=== PATIENT | female | born 2000 | race Caucasian/White ===

== ENCOUNTER 2022-08-27 23:13 | Emergency (ER) | payer OTHER ==
[2022-08-27 23:23] VITALS: BP 137/95
[2022-08-27] MEDS ORDERED: AMOX/CLAV 875 MG/125 MG TABLET PO STA (23:36)
--- NOTE | 2022-08-27 23:37 | ED Physician Documentation ---
PD HPI HEENT - Stated complaint Stated Complaint: RT EAR PX - Chief complaint Chief Complaint: Heent - History obtained from History obtained from: Patient - Additional information Additional information: Patient is a 21-year-old female presenting for evaluation of right ear pain that has been present since last . She states approximately a week ago she started having a sore throat and left ear pain with a cough productive of clear phlegm. She had a telehealth visit on Saturday and was recommended to have a strep test which was done and negative. She has been using [id number] medications with some improvement in her other symptoms. 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 Review of Systems Constitutional: denies: Fever Ears: reports: Ear pain Cardiac: denies: Chest pain / pressure Respiratory: denies: Dyspnea GI: denies: Abdominal Pain Neurologic: denies: Headache PD PAST MEDICAL HISTORY - Present Medications Home Medications: Ambulatory Orders Medication Instructions Recorded Confirmed Amox/Clav 875/125 [Augmentin] 1 each PO Q12H #14 tablet 08/27/22 Desvenlafaxine Succinate [Pristiq 100 mg PO DAILY 08/27/22 08/27/22 ER] lamoTRIgine [Lamictal Xr] 50 mg PO DAILY 08/27/22 08/27/22 - Allergies Allergies/Adverse Reactions: Allergies Allergy/AdvReac Type Severity Reaction Status Date / Time No Known Drug Allergies Allergy Verified 08/27/22 23:23 PD ED PE NORMAL - General General: Alert and oriented X 3, No acute distress, Well developed/nourished - HEENT HEENT: Atraumatic, Moist mucous membranes, Pharynx benign (No oral swelling, erythema or exudate), Other (Left TM is normal, right TM is bulging, cloudy with erythema, intact) - Neck Neck: Supple, no meningeal sign - Cardiac Cardiac: RRR - Respiratory Respiratory: No respiratory distress, Clear bilaterally - Neuro Neuro: Normal speech Results - Vitals Vitals: Vital Signs - 24 hr 08/27/22 23:18 Temperature 36.6 C Heart Rate 94 Respiratory 19 Rate Blood Pressure 137/95 H O2 Saturation 100 Oxygen O2 Source Room air PD Medical Decision Making - ED course ED course: Patient presenting for evaluation of right ear pain in the setting of other URI symptoms. Her other symptoms have improved over the course of the week but right ear pain has persisted. On exam she has signs of otitis media. Given duration and worsening feel antibiotics would be appropriate. Patient is Agreeable. She is counseled on treatment plan as well as concerning symptoms to return for. Departure - Departure Disposition: 01 Home, Self Care Clinical Impression: Right otitis media Condition: Stable Instructions: ED Otitis Media Acute Adult Prescriptions: Amox/Clav 875/125 [Augmentin] 1 each PO Q12H #14 tablet Comments: You have an ear infection in your right ear. I am starting you on an antibiotic called Augmentin. I have sent your prescription to [facility] in [place].Please make sure to complete the course of the antibiotics. If you develop any worsening symptoms please consider return to the emergency departme nt. Discharge Date/Time: 08/27/22 23:40
== END 2022-08-27 23:40 | disposition home or self-care (01) ==
LOC: ED 23:13
DX: H66.91 Otitis media, unspecified, right ear (principal)
CPT/HCPCS: 99282; 99283; A9270

== ENCOUNTER 2022-11-29 22:02 | Emergency (ER) | payer OTHER ==
[2022-11-29] MEDS ORDERED: PENICILLIN VK 250 MG TABLET PO STA (22:03)
--- NOTE | 2022-11-29 22:04 | ED Physician Documentation ---
History of Present Illness - Stated complaint Stated Complaint: SORE THROAT - History obtained from History obtained from: Patient (Her is positive for strep and she had a sore throat with a dry tongue for 2 days.) PD PAST MEDICAL HISTORY - Present Medications Home Medications: Ambulatory Orders Medication Instructions Recorded Confirmed Amox/Clav 875/125 [Augmentin] 1 each PO Q12H #14 tablet 08/27/22 Desvenlafaxine Succinate [Pristiq 100 mg PO DAILY 08/27/22 08/27/22 ER] lamoTRIgine [Lamictal Xr] 50 mg PO DAILY 08/27/22 08/27/22 Penicillin V Potassium 500 mg PO Q6HR #40 tablet 11/29/22 - Allergies Allergies/Adverse Reactions: Allergies Allergy/AdvReac Type Severity Reaction Status Date / Time No Known Drug Allergies Allergy Verified 11/29/22 22:18 PD ED PE NORMAL - Vitals Vital signs reviewed: Yes - General General: Alert and oriented X 3, No acute distress - HEENT HEENT: Other (Exudative tonsillitis) - Neck Neck: No bony TTP, No adenopathy - Neuro Neuro: Alert and oriented X 3, Normal speech Results - Vitals Vitals: Vital Signs - 24 hr 11/29/22 22:10 Temperature 36.6 C Heart Rate 82 Respiratory 15 Rate Blood Pressure 124/114 H O2 Saturation 100 Oxygen O2 Source Room air - Labs Labs: Laboratory Tests 11/29/22 22:04 Group A Strep Rapid Negative Departure - Departure Disposition: Home, Self Care Clinical Impression: Strep pharyngitis Condition: Good Record reviewed to determine appropriate education?: Yes Instructions: ED Strep Pharyngitis Conf Prescriptions: Penicillin V Potassium 500 mg PO Q6HR #40 tablet Comments: You should improve over the next few days. Return if worse. Follow-up with your primary care physician if not better by early next workweek.
[2022-11-29 22:20] VITALS: BP 124/114
[2022-11-29 22:22] LABS: RAPID STREP SCREEN Negative (Negative)
== END 2022-11-29 22:27 | disposition home or self-care (01) ==
LOC: ED 22:02
DX: J02.0 Streptococcal pharyngitis (principal)
CPT/HCPCS: 87070; 87430; 99283; A9270

== ENCOUNTER 2023-03-29 19:12 | Outpatient (CLI) | payer OTHER | END 2023-03-29 19:13 | disposition home or self-care (01) | LOC: SC 19:12 | PROVIDERS: ATTEND Nurse Practitioner Family | DX: G47.33 Obstructive sleep apnea (adult) (pediatric) (principal); G47.31 Primary central sleep apnea; E66.9 Obesity, unspecified; Z68.32 Body mass index [BMI] 32.0-32.9, adult | CPT/HCPCS: 95810 ==

== ENCOUNTER 2023-04-03 11:15 | Outpatient (CLI) | payer OTHER ==
--- NOTE | 2023-04-03 11:06 | SLEEP CARE CONSULTATION ---
Information from patient questionnaire entered by Reina Bustamante. I have reviewed and concur with the information entered by Reina Bustamante. This document represents the service I personally performed and the decisions made by , Beverly Munson ARNP. History of Present Illness Service Date and Time: 04/03/2023 1120 Initial [place] Sleepiness Scale score: 13 (02/22/23) Current [place] Sleepiness Scale score: 15 (04/03/23) Additional HPI information: NANCY POSADAS returns via telephone visit for follow up and results of the recently performed polysomnography. The sleep study showed very severe obstructive and central sleep apnea with an average AHI of 66.7 and porsche oxygen saturation of 85%. I explained the pathophysiology behind obstructive sleep apnea. We then spent quite a bit of time discussing different treatment options. For mild obstructive sleep apnea, surgery and oral appliance are alternatives to nasal CPAP therapy but in moderate or severe cases, nasal CPAP is the most effective and reliable treatment. I reviewed the impact of weight changes on sleep apnea and strongly recommended losing weight. After some discussion, the patient opted to go with the nasal CPAP therapy. A manual titration study will be ordered to find optimal pressure. I explained how CPAP machine works and what to expect when using the machine. Patient does not drink alcohol. Patient was cautioned about risks of drowsy driving until sleepiness symptoms resolve. Patient denies drowsy driving. Sleep Study - Results Type of Sleep Study: Polysomnography (COMPLETED 03/29/23) Prior sleep studies: No Polysomnography/Home Sleep Study results: IMPRESSION: The quality of the study is good. The patient had normal sleep efficiency. Despite severe sleep fragmentation, the sleep architecture was relatively normal. Respiratory monitoring showed severe obstructive and central sleep apnea-hypopnea (AHI = 66.7) associated with frequent arousals, oxyhemoglobin desaturation and mild hypoxia (porsche oxygen saturation of 85%). Most of the central apneas were transitional. The respiratory events occurred independently of sleep stage and body position (supine AHI = 51.0; non- supine = 99.84). Snore was light to loud in intensity. There was no significant periodic leg movement of sleep. Cardiac rhythm was normal sinus rhythm without significant arrhythmia. No abnormal behavior (parasomnia) observed during the night. Allergies and Home Medications Known drug allergies: No Drug allergies reviewed: Yes Home medication list reviewed: Yes (no changes) Allergy and home medication list: Allergies No Known Drug Allergies Allergy (Verified 04/02/23 14:55) Review of Systems Review of systems same as previous: Yes (NO CHANGE) Physical Exam Vital signs obtained and entered by: REINA Marsh MA Height: 5 ft 5.5 in (PER PT) Weight: 198 lb (PER PT) Body Mass Index: 32.4 BMI Classification: Obese Impression and Plan 1. Obstructive and Central Sleep Apnea-Hypopnea Syndrome, very severe, with lowest oxygen saturation of 85%. Obviously this is the cause of the patients symptoms of unrefreshed sleep, and excessive daytime sleepiness. Positive pressure therapy could benefit anxiety, depression, mood disorder (PTSD) and pre-diabetes. As mentioned above, the patient will be started on nasal autoCPAP therapy after a manual titration study to find optimal treatment pressure to control mixed sleep apnea. Patient agreed with plan of care. 2. Obesity, unspecified. Currently patients BMI is 32.4. Obesity increases the risk of apnea, CPAP pressure requirements and overall health risks especially cardiovascular and diabetes. Thus patient is advised to lose weight. 3. Hypoxemia, mild, with a porsche oxygen saturation of 85% and 2.6 minutes spent under 90%. The baseline oxygen saturation was normal with an average oxygen saturation of 94%. * Titration study. * Attempt to lose weight. * The patient is again cautioned about driving until sleepiness completely resolves. * Return after titration study for setup of PAP therapy. Counseling Topics: Sleeping position, Weight loss health impact Plan: Titration study Visit Type: Telehealth Phone Patient Location: Home Location of Provider: Office Patient agrees and consents to this telehealth visit type: Yes Patient agrees to have their insurance billed: Yes Time Spent with Patient (minutes): 12 Provider Statement: I spent 100% of the Telehealth Phone Call with the patient with greater than 50% spent counseling the patient and coordination of care.
== END 2023-04-03 11:16 | disposition home or self-care (01) ==
LOC: SC 11:15
PROVIDERS: ATTEND Nurse Practitioner Family
DX: G47.33 Obstructive sleep apnea (adult) (pediatric) (principal); G47.31 Primary central sleep apnea; E66.9 Obesity, unspecified; Z68.32 Body mass index [BMI] 32.0-32.9, adult; R09.02 Hypoxemia
CPT/HCPCS: 99442

== ENCOUNTER 2023-05-10 19:44 | Outpatient (CLI) | payer OTHER | END 2023-05-10 19:45 | disposition home or self-care (01) | LOC: SC 19:44 | PROVIDERS: ATTEND Nurse Practitioner Family | DX: G47.33 Obstructive sleep apnea (adult) (pediatric) (principal); G47.31 Primary central sleep apnea | CPT/HCPCS: 95811 ==

== ENCOUNTER 2023-05-17 15:49 | Outpatient (CLI) | payer OTHER ==
--- NOTE | 2023-05-17 16:10 | Sleep Patient Instructions ---
Sleep Center Visit Summary - Patient Visit Information Reason for Visit: Titration followup - Patient Instructions Instructions Attached: CPAP Additional Instructions: You are being started on CPAP therapy with pressure setting at 10 cmH2O. You will need to call the sleep care office to set up your follow up once you have your APAP machine and we will schedule a visit to check compliance and response to therapy at that time. You may call the office with any concerns about pressure feeling too low or too much for adjustment, if needed. You should contact DME supplier for any questions or concerns about mask or equipment. Please call office to schedule a follow up appointment in the sleep care office one month after obtaining new device. - Clinic Information Contact: [facility] [address] [place] [address] [email or web address] T: [phone]
--- NOTE | 2023-05-17 16:14 | SLEEP CARE CONSULTATION ---
Information from patient questionnaire entered by Reina Bustamante. I have reviewed and concur with the information entered by Reina Bustamante. This document represents the service I personally performed and the decisions made by , Beverly Munson ARNP. History of Present Illness Service Date and Time: 05/17/2023 1549 Initial [place] Sleepiness Scale score: 13 (02/22/23) Current [place] Sleepiness Scale score: 16 (05/17/23) Additional HPI information: NANCY POSADAS returns for follow up of the sleep study with a manual CPAP titration study performed on 05-10-2023. The patient was informed of the following polysomnography findings: CPAP was initiated at 5 cmH2O and titrated up to CPAP at 11 cmH2O. CPAP at 10 cmH2O appeared to be optimal (AHI of 1.6 per hour on the pressure). There was supine REM sleep on the pressure. Oxygen saturation was normal throughout the night. Lower CPAP settings appeared adequate as well. The patient appeared to have tolerated positive airway pressure therapy very well. I explained that the optimal CPAP pressure is 10 cmH2O. Sleep Study - Results Type of Sleep Study: Polysomnography (COMPLETED 03/29/23 TITRATION F/U COMPLETED ON 05/10/23) Prior sleep studies: No Polysomnography/Home Sleep Study results: IMPRESSION: The quality of the study is good. CPAP was initiated at 5 cmH2O and titrated up to CPAP at 11 cmH2O. CPAP at 10 cmH2O appeared to be optimal (AHI of 1.6 per hour on the pressure). There was supine REM sleep on the pressure. Oxygen saturation was normal throughout the night. Lower CPAP settings appeared adequate as well. The patient appeared to have tolerated positive airway pressure therapy very well. The patients sleep efficiency was normal. The sleep architecture was also normal. There was no significant periodic leg movement of sleep. Cardiac rhythm was normal sinus rhythm without significant arrhythmia. No abnormal behavior (parasomnia) observed during the night. Allergies and Home Medications Known drug allergies: No Drug allergies reviewed: Yes Home medication list reviewed: Yes (no changes) Allergy and home medication list: Allergies No Known Drug Allergies Allergy Review of Systems Review of systems same as previous: Yes (NO CHANGE) Physical Exam Vital signs obtained and entered by: REINA Marsh MA Blood Pressure: 143/89 (RIGHT ARM) Cuff size: regular Heart Rate: 85 O2 Saturation: 97 Height: 5 ft 5.5 in (PER PT) Weight: 198 lb 6.4 oz Body Mass Index: 32.5 BMI Classification: Obese Impression and Plan 1. Obstructive and Central Sleep Apnea-Hypopnea Syndrome, severe. Patient returns after titration study which showed her optimal pressure of 10 cmH2O. She tolerated CPAP therapy well the night of the study with a fullface mask, ResMed AirFit F30. The patient will be started on nasal autoCPAP therapy with pressure set at 10 cmH2O. Compliance guidelines also reviewed. A copy of compliance guidelines will be given for reference at check out. 2. Obesity, unspecified. Currently patients BMI is 32.5. Obesity increases the risk of apnea, CPAP pressure requirements and overall health risks especially cardiovascular and diabetes. Thus patient is advised to lose weight. * Nasal CPAP therapy, pressure at 10 cmH2O. * Attempt to lose weight. * Avoid alcohol consumption near bedtime. * Avoid supine sleep until using CPAP. * The patient is again cautioned about driving until sleepiness completely resolves. * Return one month after CPAP obtained. I will assess response to therapy and compliance at that time. Counseling Topics: Weight loss health impact Prescriptions: Auto CPAP Visit Type: In Office Time Spent with Patient (minutes): 20 Provider Statement: I spent 100% of the Face to Face Visit with the patient with greater than 50% spent counseling the patient and coordination of care.
[2023-05-17 16:18] VITALS: BP 143/89; O2SAT 97
== END 2023-05-17 15:50 | disposition home or self-care (01) ==
LOC: SC 15:49
PROVIDERS: ATTEND Nurse Practitioner Family
DX: G47.31 Primary central sleep apnea (principal); G47.33 Obstructive sleep apnea (adult) (pediatric); E66.9 Obesity, unspecified; Z68.32 Body mass index [BMI] 32.0-32.9, adult
CPT/HCPCS: 99212

== ENCOUNTER 2023-06-28 12:45 | Outpatient (CLI) | payer OTHER ==
[2023-06-28 19:38] LABS: BACTERIAL VAGINOSIS DNA POSITIVE (NEGATIVE); CANDIDA GLABRATA DNA NEGATIVE (NEGATIVE); CANDIDA GROUP DNA POSITIVE (NEGATIVE); CANDIDA KRUSEI DNA NEGATIVE (NEGATIVE); TRICHOMONAS VAGINALIS DNA NEGATIVE (NEGATIVE)
== END 2023-06-28 13:00 | disposition home or self-care (01) ==
LOC: LAB.N 12:45
PROVIDERS: ATTEND Physician Assistant Medical
DX: N89.8 Other specified noninflammatory disorders of vagina (principal)
CPT/HCPCS: 81514

== ENCOUNTER 2023-12-12 08:00 | Outpatient (CLI) | payer OTHER ==
[2023-12-12 20:50] LABS: CHLAMYDIA TRACHOMATIS DNA NEGATIVE (NEGATIVE); NEISSERIA GONORRHOEAE DNA NEGATIVE (NEGATIVE)
[2023-12-12 21:51] LABS: BACTERIAL VAGINOSIS DNA POSITIVE (NEGATIVE); CANDIDA GLABRATA DNA NEGATIVE (NEGATIVE); CANDIDA GROUP DNA POSITIVE (NEGATIVE); CANDIDA KRUSEI DNA NEGATIVE (NEGATIVE); TRICHOMONAS VAGINALIS DNA NEGATIVE (NEGATIVE)
== END 2023-12-12 23:59 | disposition home or self-care (01) ==
LOC: LAB.N 08:00
PROVIDERS: ATTEND Physician Assistant
DX: N89.8 Other specified noninflammatory disorders of vagina (principal)
CPT/HCPCS: 81514; 87491; 87591; 87661

== ENCOUNTER 2023-12-27 10:43 | Outpatient (CLI) | payer OTHER ==
[2023-12-27 11:04] LABS: HCT - HEMATOCRIT 39.9 % (37.0-47.0); HGB - HEMOGLOBIN 12.9 g/dL (12.0-16.0); MEAN CORPUSCULAR HEMOGLOBIN 28.2 pg (27.0-31.0); MEAN CORPUSCULAR HGB CONC 32.3 g/dL (32.0-36.0); MEAN CORPUSCULAR VOLUME 87.1 fL (81.0-99.0); MEAN PLATELET VOLUME 9.5 fL (7.9-10.8); RED BLOOD COUNT 4.58 10^6/uL (4.20-5.40); RED CELL DISTRIBUTION WIDTH 13.3 % (12.0-15.0)
[2023-12-27 11:24] LABS: ALBUMIN 4.3 g/dL (3.2-5.5); ALBUMIN/GLOBULIN RATIO 1.4 (1.0-2.2); BILIRUBIN,TOTAL 0.2 mg/dL (0.2-1.0); CALCIUM 9.7 mg/dL (8.5-10.3); CREATININE 0.7 mg/dL (0.6-1.3); POTASSIUM 4.2 mmol/L (3.5-4.5); TOTAL PROTEIN 7.3 g/dL (6.4-8.9)
[2023-12-27 11:36] LABS: THYROID STIMULATING HORMONE 1.36 uIU/mL (0.34-5.60)
[2023-12-27 13:04] LABS: ESTIMATED AVERAGE GLUCOSE 117 mg/dL (70-100); HEMOGLOBIN A1c% 5.7 % (4.27-6.07)
[2023-12-28 05:13] LABS: HBsAG SCREEN Negative (Negative)
[2023-12-28 06:10] LABS: RPR Non Reactive (Non Reactive)
[2023-12-28 13:09] LABS: HSV 1 IGG TYPE SPEC <0.91 index (0.00-0.90); HSV 2 IGG TYPE SPEC <0.91 index (0.00-0.90)
[2023-12-29 03:38] LABS: HCV AB Non Reactive (Non Reactive)
[2023-12-29 08:08] LABS: HIV SCREEN 4TH GENERATION Non Reactive (Non Reactive)
[2023-12-30 22:07] LABS: HEPATITIS BE ANTIBODY Non Reactive (Negative)
== END 2023-12-27 10:44 | disposition home or self-care (01) ==
LOC: LAB 10:43
PROVIDERS: ATTEND Obstetrics & Gynecology
DX: Z11.3 Encounter for screening for infections with a predominantly sexual mode of transmission (principal); Z13.1 Encounter for screening for diabetes mellitus; N92.6 Irregular menstruation, unspecified
CPT/HCPCS: 36415; 80053; 83036; 84443; 85027; 86592; 86695; 86696; 86707; 86803; 87340; 87389